=== PATIENT | female | born 1985 | race Caucasian/White ===

== ENCOUNTER → 2020-04-01 09:10 | Outpatient (CLI) | payer BC, SELFPAY ==
[2020-04-02 09:56] LABS: Varicella IgG Antibody 1543 index (Immune >165)
[2020-04-04 13:17] LABS: Gest Age on Col Date 16.6 weeks (.); Gestational Age Ultrasound (.); Insulin Dep Diabetes No (.); OSBR Risk 1IN 578 (.); Results Report (.); Test Results *Screen Negative* (.)
== END ==
PROVIDERS: Referring Provider Specialist; Visit Provider Specialist
DX: O30.049 Twin pregnancy, dichorionic/diamniotic, unspecified trimester (principal)
CPT/HCPCS: 36415; 82105; 86787

== ENCOUNTER → 2020-04-30 09:15 | Outpatient (CLI) | payer BC, SELFPAY ==
--- NOTE | 2020-04-30 09:17 | DI.US.S_ITS ---
PROCEDURE: US OB >= 14 WEEKS FETUS INDICATIONS: 20 week anatomy scan *TWINS* OUTSIDE/PRIOR DATING DATA: Last menstrual period (LMP): 12/07/11. LMP-based estimated date of delivery (AMBROSE): 09/12/20. First dating scan (date and location): 04/01/20. Estimated date of delivery (AMBROSE) from first dating scan: 09/08/20. TECHNIQUE: Real-time scanning was performed of the fetuses, with image documentation and biometric measurements. Endovaginal scanning: No COMPARISON: [facility], , OB >= 14 WEEKS FETUS, 04/01/2020, 8:51. FINDINGS: General: An intrauterine dichorionic-diamniotic twin is present, as evidenced by separate placentas, differing sexes, or an intervening membrane of greater than 2 mm. Amniotic fluid index (composite): 13.6 cm. Maternal cervical canal: 4.1 cm long. Normal lower limit is 2.5 cm. FETUS A: Fetus is located on the maternal left side, and is in vertex presentation. Placental position is anterior, without previa. heart rate: 136 beats per minute. biometrics: Biparietal diameter: 21 weeks 2 days Head circumference: 21 weeks 1 day Abdominal circumference: 21 weeks 6 days Femur length: 20 weeks 5 days Estimated gestational age from initial scan: 21 weeks 2 days Composite gestational age from present scan: 21 weeks 2 days Estimated weight and percentile: 412 g; 44th percentile Measurement variability for biometric dating: +/- 7 days from 14 weeks to 15 weeks 6 days gestation, +/- 10 days from 16 weeks to 21 weeks 6 days gestation, +/- 2 weeks from 22 weeks to 27 weeks 6 days gestation, +/- 3 weeks for 28 weeks gestation or later. weight reference: 4500 g or EFW >90/95% is considered macrosomia or large for gestational age. EFW <10% is small for gestational age. EFW 5% or less is considered intra-uterine growth restriction. Anatomic survey: Neuro: Ventricles are normal at less than 10 mm. Cisterna magna is normal at 3-11 mm. Cerebellum is normal in size and morphology. Nuchal skin fold: Normal at less than 6 mm between 14 and 21 weeks gestational age. Face: Nose and lips, facial profile are normal. Spine: No evidence for spina bifida. Heart: 4 chambered heart is present, with normal ventricular outflow tracts. Diaphragm: Diaphragm is intact. Stomach: Left-sided stomach is present. Kidneys: No hydronephrosis. Normal ranges are less than 5 mm in 2nd trimester, less than 7 mm in 3rd trimester. Cord: 3 vessel cord has orthotopic insertion. Bladder: Normal in size. Extremities: All 4 extremities are visualized. FETUS B: Fetus is located on the maternal right side, and is in transverse presentation. . Placental position is anterior, without previa. heart rate: 141 beats per minute. biometrics: Biparietal diameter: 21 weeks 1 day Head circumference: 21 weeks 3 days Abdominal circumference: 21 weeks 6 days Femur length: 20 weeks 4 days Estimated gestational age from initial scan: 21 weeks 2 days Composite gestational age from present scan: 21 weeks 2 days Estimated weight and percentile: 413 g; 45th percentile Measurement variability for biometric dating: +/- 7 days from 14 weeks to 15 weeks 6 days gestation, +/- 10 days from 16 weeks to 21 weeks 6 days gestation, +/- 2 weeks from 22 weeks to 27 weeks 6 days gestation, +/- 3 weeks for 28 weeks gestation or later. weight reference: 4500 g or EFW >90/95% is considered macrosomia or large for gestational age. EFW <10% is small for gestational age. EFW 5% or less is considered intra-uterine growth restriction. Anatomic survey: Neuro: Ventricles are normal at less than 10 mm. Cisterna magna is normal at 3-11 mm. Cerebellum is normal in size and morphology. Nuchal skin fold: Normal at less than 6 mm between 14 and 21 weeks gestational age. Face: Not well-visualized. Spine: No evidence for spina bifida. Heart: 4 chambered heart is present, with normal ventricular outflow tracts. Diaphragm: Diaphragm is intact. Stomach: Left-sided stomach is present. Kidneys: No hydronephrosis. Normal ranges are less than 5 mm in 2nd trimester, less than 7 mm in 3rd trimester. Cord: 3 vessel cord has orthotopic insertion. Bladder: Normal in size. Extremities: All 4 extremities are visualized. IMPRESSION: 1. Diamniotic dichorionic living twin gestation redemonstrated and interval growth is normal for each fetus as above. 2. Normal anatomic survey for fetus B. 3. face for fetus B. not well-visualized; otherwise normal anatomic survey. Followup recommended. Dictated by: Sanjiv Garcia [facility] Interpreted: Jessica Ellison MD on 04/30/2020 at 10:49 Approved by: Jessica Ellison MD, PhD on 04/30/2020 at 13:39
== END ==
PROVIDERS: Referring Provider Specialist; Visit Provider Specialist
DX: O30.042 Twin pregnancy, dichorionic/diamniotic, second trimester (principal); Z3A.21 21 weeks gestation of pregnancy
CPT/HCPCS: 76811; 76812

== ENCOUNTER → 2020-05-25 10:58 | Outpatient (CLI) | payer BC, SELFPAY ==
[2020-05-25 12:52] LABS: Hematocrit 34.7 % (36-46); Hemoglobin 11.9 g/dL (12.0-16.0)
[2020-05-25 13:07] LABS: GTT (PREG) 1 Hour PP 50gm Dose 107 mg/dL (76-139)
== END ==
PROVIDERS: PCP Family Medicine; Referring Provider Specialist; Visit Provider Specialist
DX: Z34.82 Encounter for supervision of other normal pregnancy, second trimester (principal); Z3A.26 26 weeks gestation of pregnancy
CPT/HCPCS: 36415; 82950; 85014; 85018

== ENCOUNTER 2020-06-09 10:17 | Observation (INO) | payer BC, SELFPAY ==
--- NOTE | 2020-06-09 | DI.US.S_ITS ---
PROCEDURE: US OB LIMITED INDICATIONS: CONTRACTIONS OUTSIDE/PRIOR DATING DATA: Last menstrual period (LMP): 12/07/2019. LMP-based estimated date of delivery (AMBROSE): 09/12/2020. First dating scan (date and location): 04/01/2020 at [facility]. Estimated date of delivery (AMBROSE) from first dating scan: 09/08/2020. TECHNIQUE: Real-time scanning was performed of the fetuses, with image documentation and biometric measurements. Endovaginal scanning: Yes COMPARISON: [facility], OB >= 14 WEEKS FETUS, 06/03/2020, 10:49. [facility], OB >= 14 WEEKS FETUS, 05/22/2020, 16:53. [facility] OB >= 14 WEEKS FETUS, 05/08/2020, 12:12. [facility] OB >= 14 WEEKS FETUS, 04/30/2020, 9:30. [facility] OB >= 14 WEEKS FETUS, 04/01/2020, 8:51. [facility], OB <= 14 WEEKS FETUS, 03/04/2020, 16:34. FINDINGS: General: An intrauterine dichorionic-diamniotic twin is present, as evidenced by separate placentas, differing sexes, or an intervening membrane of greater than 2 mm. Amniotic fluid index (composite): 15.9 cm. Maternal cervical canal: 3.3 cm long. Normal lower limit is 2.5 cm. FETUS A: Fetus is located on the maternal left side, and is in vertex presentation. Largest amniotic fluid pocket: 6.2 cm; normal range is 2-8 cm. Placental position is anterior, without previa. heart rate: 155 beats per minute. FETUS B: Fetus is located on the maternal right side, and is in transverse presentation. Largest amniotic fluid pocket: 3.9 cm; normal range is 2-8 cm. Placental position is anterior without previa. heart rate: 145 beats per minute. IMPRESSION: 1. Twin living intrauterine gestations are redemonstrated. 2. The cervix is closed measuring 3.3 cm. Dictated by: Lizeth Guerrero M.D. on 06/09/2020 at 15:23 Approved by: Lizeth Guerrero M.D. on 06/09/2020 at 15:36
[2020-06-09 11:35] LABS: Bacteria Urine None Seen; RBC Urine None Seen (0-5/HPF)
[2020-06-09 11:44] LABS: Culture Indicated Urine Cult Not Indicated; WBC Urine 0-1/HPF (0-5/HPF)
[2020-06-09] MEDS: NIFEdipine 10 MG CAPSULE PO ×4 (12:55→14:05)
--- NOTE | 2020-06-09 14:28 | P.TNLD_ITS ---
Visit Information Visit Information Date of evaluation: 06/09/20 Primary OB Provider: Ginette Gabriel On-call OB Provider: Miranda Davison Reason for Evaluation: Yes non-stress test Comments/Additional reasons for admission: This patient is a 34yo @26+3 with spontaneous di/di twins, presenting after calling triage with contractions since yesterday. She reports contractions as often as 2x an hour yesterday afternoon and evening, and a pelvic sensation that might be pressure. She denies vaginal bleeding, and reports increased discharge x1 week but no itching, odor, or UTI symptoms. She has had a previously uncomplicated , and has a history de la torre vaginal delivery after 40 weeks after an uncomplicated . [facility] Medical History Eczema of both upper extremities (Acute) HPV in female (Acute ~2011) (spontaneous vaginal delivery) (Acute ~08/25/18) Twin gestation in first trimester (Acute) UTI (urinary tract infection) (Acute) Surgical History H/O LEEP (Acute) H/O myringotomy (Acute) H/O wisdom tooth extraction (Acute) Hx of oral surgery (Acute) Family History Mother No problems noted. 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 estella/uatsdin: [employer] special estella needs: No Smoking Status: Former smoker (many years ago pre-college) Tobacco: How many years used: 1 second hand exposure: No alcohol intake: former (pre- : rare-social) substance use type: does not use Review of Systems Constitutional Constitutional: Reports system reviewed and no additional complaints, except as documented Cardiovascular Cardiovascular: Reports system reviewed and no additional complaints, except as documented Respiratory Respiratory: Reports system reviewed and no additional complaints, except as documented Gastrointestinal Gastrointestinal: Reports as per HPI Genitourinary Genitourinary: Reports as per HPI Exam Const General: cooperative, healthy appearing and comfortable GI Palpation: soft and No tender External Female Exam: other (mucosa/labia mildly erythematous) Other: cervix posterior and high, closed/long though multiparous. Ultrasound reviewed, 3.3cm cervical length. Objective Labs Labs: Laboratory Results - last 24 hr 06/09/20 10:30 Urine RBC None seen Urine WBC 0-1/hpf Urine Bacteria None seen Ur Culture Indicated? Cult not indicated Evaluation Evaluation Cervical dilation (cm): 0 Cervical effacement (%): 0 station: -4 Laboratory results: Laboratory Tests 06/09/20 10:30 Urine RBC None seen Urine WBC 0-1/hpf Urine Bacteria None seen Ur Culture Indicated? Cult not indicated Comments: TVUS reviewed. Reassuring status, cervix measures 3.3cm. No FFN sent. Baby A: baseline 145, moderate variability, + 10x10 accels, no decels Baby B: baseline 150, moderate variability, 10x10 accels, no decels Diagnosis, Plan/Disposition Plan/Disposition Plan: Patient with long and closed cervix, largely asymptomatic contractions that resolved with course of PO nifedipine and PO hydration. UA negative for UTI, Affirm collected as vaginal mucus concerning for vaginitis. Patient discharged home with precautions. Patient to move OB visit up to tomorrow for further evaluation, consideration of FFN and repeat cervical length depending on symptoms. OB Disposition: home
[2020-06-10 08:13] LABS: Candida species Negative (Negative); Gardnerella vaginalis Negative (Negative); Trichomoas vaginalis Negative (Negative)
== END 2020-06-09 14:40 | disposition home or self-care (01) ==
PROVIDERS: Obstetrics & Gynecology; Admitting Provider Specialist; PCP Family Medicine; Referring Provider Specialist; Visit Provider Specialist
DX: O30.042 Twin pregnancy, dichorionic/diamniotic, second trimester (principal); O47.02 False labor before 37 completed weeks of gestation, second trimester; N89.8 Other specified noninflammatory disorders of vagina; Z3A.26 26 weeks gestation of pregnancy
CPT/HCPCS: 59025; 59050; 76815; 81015; 87480; 87510; 87660; G0378; G0379

== ENCOUNTER → 2020-06-10 13:50 | Outpatient (CLI) | payer BC, SELFPAY ==
[2020-06-10 14:32] LABS: Fetal Fibronectin Negative
== END ==
PROVIDERS: PCP Family Medicine; Visit Provider Specialist
DX: O60.02 Preterm labor without delivery, second trimester (principal)
CPT/HCPCS: 82731

== ENCOUNTER 2020-07-07 10:18 | Outpatient (CLI) | payer BC, SELFPAY | END 2020-07-07 10:45 | disposition home or self-care (01) | LOC: OB 07-09 10:27 | PROVIDERS: PCP Family Medicine | DX: O30.003 Twin pregnancy, unspecified number of placenta and unspecified number of amniotic sacs, third trimester (principal); Z3A.30 30 weeks gestation of pregnancy | CPT/HCPCS: 59025; G0378; G0379 ==

== ENCOUNTER 2020-07-29 13:52 | Outpatient (CLI) | payer BC, SELFPAY ==
--- NOTE | 2020-07-29 15:12 | PM.OBTRLD ---
Visit Information Visit Information Date of evaluation: 07/29/20 Primary OB Provider: Ginette Gabriel Reason for Evaluation: Yes pre-term labor [facility] Medical History (Updated 07/29/20 @ 15:13 by Ginette Gabriel MD) 33 weeks gestation of (Acute) Eczema of both upper extremities (Acute) False labor (Acute) HPV in female (Acute ~2011) (spontaneous vaginal delivery) (Acute ~08/25/18) UTI (urinary tract infection) (Acute) Surgical History H/O LEEP (Acute) H/O myringotomy (Acute) H/O wisdom tooth extraction (Acute) Hx of oral surgery (Acute) Family History Mother No problems noted. 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: [employer]astafarian special estella needs: No Smoking Status: Former smoker (many years ago pre-college) Tobacco: How many years used: 1 second hand exposure: No alcohol intake: former (pre- : rare-social) substance use type: does not use Evaluation Evaluation Baseline heart rate: 150 (Both) Variability: Moderate (11-25) (Both) monitor accelerations: Present (Both) monitor decelerations: Absent (Both) Contraction Frequency (minutes): 10 Uterine Contraction Intensity: Mild Category of Tracing: Reactive Cervical dilation (cm): 0 Cervical effacement (%): 0 station: -3 Diagnosis, Plan/Disposition Final Diagnosis (1) False labor: Status: Acute (2) 33 weeks gestation of : Status: Acute Plan/Disposition Plan: No evidence of change in cervix with uterine irritability. Precautions reviewed OB Disposition: home
== END 2020-07-29 15:30 | disposition home or self-care (01) ==
LOC: LABOR 14:23 → OB 08-13 10:48
PROVIDERS: PCP Family Medicine; Referring Provider Specialist; Visit Provider Specialist
DX: O47.03 False labor before 37 completed weeks of gestation, third trimester (principal); O30.003 Twin pregnancy, unspecified number of placenta and unspecified number of amniotic sacs, third trimester; Z3A.33 33 weeks gestation of pregnancy
CPT/HCPCS: 59025; G0378; G0379

== ENCOUNTER → 2020-08-07 15:35 | Outpatient (CLI) | payer BC, SELFPAY ==
[2020-08-08 15:08] LABS: Strep Grp B PCR NEG for Grp B Strep
== END ==
PROVIDERS: PCP Family Medicine; Visit Provider Specialist
DX: Z34.83 Encounter for supervision of other normal pregnancy, third trimester (principal); Z3A.34 34 weeks gestation of pregnancy
CPT/HCPCS: 87653

== ENCOUNTER → 2020-08-25 10:15 | Outpatient (CLI) | payer BC, SELFPAY ==
[2020-08-26 00:49] LABS: COVID19 Sendout Not Detected (Not Detect)
== END ==
PROVIDERS: PCP Family Medicine; Visit Provider Physician Assistant
DX: Z01.812 Encounter for preprocedural laboratory examination (principal)
CPT/HCPCS: 87635

== ENCOUNTER 2020-08-28 05:51 | Inpatient (IN) | payer BC, SELFPAY ==
--- NOTE | 2020-08-28 07:21 | PM.PREOP ---
Pre-operative Note COVID-19 COVID-19 status: Negative Result date/Date tested (Pos, Neg/Pending): 08/25/20 Interval Note History & Physical reviewed/Exam performed by Physician: Yes Changes to H&P: No
[2020-08-28 07:26] VITALS: BP 128/72
[2020-08-28 07:52] LABS: Add Manual Diff / Slide Review NO; Basophils Absolute Auto 0 /uL (0-100); Basophils Percent Auto 0.2 % (0-2); Eosinophils Absolute Auto 200 /uL (0-450); Eosinophils Percent Auto 2.7 % (2-4); Hematocrit 34.6 % (36-46); Hemoglobin 11.5 g/dL (12.0-16.0); Lymphocytes Absolute Auto 1900 /uL (1100-4500); Lymphocytes Percent Auto 26.1 % (25-40); Mean Corpuscular HGB Conc 33.4 % (30-36); Mean Corpuscular Hemoglobin 29.2 PG (26-34); Mean Corpuscular Volume 87.4 fL (80-100); Monocytes Absolute Auto 700 /uL (0-900); Neutrophils Absolute Auto 4600 /uL (1500-7000); Platelet Count 171 X10^3/uL (150-400); Red Blood Cell Count 3.95 X10^6/uL (4.0-5.2); White Blood Cell Count 7.4 X10^3/uL (4.5-11.0)
[2020-08-28] MEDS: CEFAZOLIN 2 GM/100 ML FROZ.PIGGY IV (08:05)
--- NOTE | 2020-08-28 08:37 | SUR.OPER ---
Supine on Padded OR bed, head on pillow, safety belt at thigh, arms secured on padded arm boards at <90 degrees abduction. Bump under right buttock. Legs uncrossed with pillow under knees, gel pad to heels, tape over blanket to lower legs.
[2020-08-28] MEDS: ACETAMINOPHEN IV 1,000 MG/100 ML VIAL 400 MG IV (08:42)
--- NOTE | 2020-08-28 08:42 | SUR.OPER ---
BABY A FHT 138, BABY B FHT 146 BABY A LIVE FEMALE BORN AT 0826 BABY B LIVE MALE BORN AT 0827
[2020-08-28 09:05] VITALS: BP 121/51; PULSE 71; RESP 12; TEMP 36.2; O2SAT 100
[2020-08-28 09:10] VITALS: BP 132/58; PULSE 70; RESP 9; O2SAT 100
[2020-08-28] MEDS: MEPERIDINE 50 MG/ML INJ 12.5 MG IV (09:13)
[2020-08-28 09:15] VITALS: BP 117/59; PULSE 77; RESP 16; O2SAT 100
--- NOTE | 2020-08-28 09:18 | PM.OP.1 ---
Operative Date/Time/Diagnoses Date of procedure: 08/28/20 Time of procedure: 09:18 Pre-op diagnosis: Twin gestation at 38 weeks in non vertex position Post-op diagnosis: same Procedure & Clinicians Procedure: Primary low-transverse section Same procedure as scheduled: Yes Indications: Twin gestation at 38 weeks with non vertex presentation Surgeon: Ginette Gabriel [place] Worker: Elysia Morales Click Yes if Unassisted: No Anesthesia Type: Spinal Operative Notes Findings: Normal tubes, ovaries, uterus. Viable female weighing 5 lb 14 oz with Apgars of 9 and 9 viable male infant weighing 5 lb 11 oz with Apgars of 9 in 10 Closure Type: primary Specimen(s): none sent Applied: catheter (Yanez) Estimated Blood Loss (mL): 400 Blood products transfused: none Procedure in detail: The patient was brought to the operating room where she underwent a spinal for anesthesia. She was placed in a supine position with a left lateral tilt. A Yanez catheter was placed. Pulsatile stockings were placed and functional throughout the case. 2 g of Ancef were given IV prior to the incision. Warming was in place. The patient was prepped and draped in usual sterile fashion. A low transverse incision was made with a scalpel and the incision was carried down to the fascial layer which was incised transversely with scissors. The midline attachments are superiorly and inferiorly. The rectus muscles were in the midline and the peritoneal incision was made with no damage to internal structures. The peritoneum was incised and superiorly and inferiorly. Bladder blade was placed and a bladder flap was developed and the bladder held away from the lower uterine segment. An incision was made in the uterus with the scalpel and the incision was extended with stretching. The 1st amniotic fluid cavity was entered and the feet grasped. The infant was delivered to the shoulders and the arms delivered. The head delivered with finger in the 's mouth. Delayed cord clamping was performed for about 45 seconds. The was handed off to the warmer. The 2nd amniotic fluid cavity was entered. Feet grasped and the infant delivered to the shoulders. The arms were delivered followed by the head. Delayed cord clamping about 45 seconds. The was handed off to the warmer. Cord bloods were collected. The placenta was delivered. The uterus was cleaned with clean laps. The uterine incision was closed in 2 layers of 0 chromic suture the first a running locking layer the second an imbricating layer. The bladder peritoneum was repaired with 2-0 Vicryl suture. The gutters were cleaned of any remaining fluids and ovaries and tubes were observed to be normal. Adequate hemostasis was noted. The perineum was closed with 2-0 Vicryl suture. The fascia layer was closed with 0 Vicryl suture with 2 stitches. The incision was irrigated and adequate hemostasis noted. The skin was closed with a subcuticular stitch of 4-0 Vicryl suture. Steri-Strips were placed. An Aquacel dressing was placed. The uterus was massaged to remove any clots. The patient went to recovery room in good condition. Counts of instruments and sponges were correct. Complications: none Post-operative Condition: stable Disposition: other ( Center) Plan for aftercare: Routine post section
[2020-08-28 09:30] VITALS: BP 139/56; PULSE 66; RESP 18; O2SAT 100
[2020-08-28] MEDS: diphenhydrAMINE 50 MG/ML VIAL 12.5 MG IV (09:30)
--- NOTE | 2020-08-28 10:26 | SUR.PHASEI ---
Late entry: Pt had shakes post op, demerol given, pt had a reaction to l inner arm, red lines along blood vessels and one raised dime sized area to lower inner arm. Dr Lopez made aware, Rivera ordered and administered.
--- NOTE | 2020-08-28 10:32 | SUR.PHASEI ---
As pt being transported to room in , l arm welt much improved and red lines gone as well.
[2020-08-28] MEDS: KETOROLAC 30 MG/ML VIAL IV ×2 (15:01→21:07)
[2020-08-28 21:07] VITALS: TEMP 36.8
[2020-08-28] MEDS: LACTATED RINGERS 1,000 ML 100 ML IV (21:38)
[2020-08-29] MEDS: KETOROLAC 30 MG/ML VIAL IV (03:05)
[2020-08-29 05:45] LABS: Add Manual Diff / Slide Review NO; Basophils Absolute Auto 0 /uL (0-100); Basophils Percent Auto 0.2 % (0-2); Eosinophils Absolute Auto 200 /uL (0-450); Eosinophils Percent Auto 2.2 % (2-4); Hematocrit 29.4 % (36-46); Hemoglobin 9.7 g/dL (12.0-16.0); Lymphocytes Absolute Auto 2000 /uL (1100-4500); Lymphocytes Percent Auto 23.2 % (25-40); Mean Corpuscular Hemoglobin 29.1 PG (26-34); Mean Corpuscular Volume 88.1 fL (80-100); Monocytes Absolute Auto 900 /uL (0-900); Neutrophils Absolute Auto 5400 /uL (1500-7000); Neutrophils Percent Auto 63.4 % (50-75); Platelet Count 137 X10^3/uL (150-400); Red Blood Cell Count 3.34 X10^6/uL (4.0-5.2); Red Cell Distribution Width 16.3 % (11.6-14.8); White Blood Cell Count 8.4 X10^3/uL (4.5-11.0)
[2020-08-29] MEDS: DOCUSATE 250 MG CAPSULE PO (07:56)
[2020-08-29] MEDS: ACETAMINOPHEN 325 MG TABLET 650 MG PO (08:30)
--- NOTE | 2020-08-29 08:59 | P.PNOB_ITS ---
Subjective - OB Subjective Patient comments: no complaints, pain well controlled and tolerating diet baby status: doing well feeding status: exclusively breast feeding Narrative: Patient is POD#1 s/p scheduled pCS for twins, recovering appropraitely. 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 Date Patient Seen: 08/29/20 Time Patient Seen: 09:37 Interval history: This patient reports feeling well this AM, is ambulating, voiding, mild lochia, tolerating PO, has good pain control. Has not passed flatus but feels the urge to pass gas. Exam Vital Signs (past 8 hours): 109/66, HR 73, T 36.3C Oxygen Delivery Method Room Air Const General: cooperative, healthy appearing and comfortable Resp Effort & Inspection: normal respiratory effort Auscultation: clear to auscultation bilaterally Cardio Rate: regular rate Rhythm: regular rhythm GI Inspection: incision (c/d/i, covered by bandage) Palpation: soft and No tender Other: fundus firm, well below u Skin General: no rashes or lesions noted Extrem General: normal to inspection Objective Labs Result Diagrams: 08/29/20 05:06 Labs: Laboratory Results - last 24 hr 08/29/20 05:06 WBC 8.4 RBC 3.34 L Hgb 9.7 L Hct 29.4 L MCV 88.1 MCH 29.1 MCHC 33.0 RDW 16.3 H Plt Count 137 L Neut % (Auto) 63.4 Lymph % (Auto) 23.2 L [place] % (Auto) 11.0 Eos % (Auto) 2.2 Baso % (Auto) 0.2 Neut # (Auto) 5400 Lymph # (Auto) 2000 [place] # (Auto) 900 Eos # (Auto) 200 Baso # (Auto) 0 Assessment & Plan Assessment and Plan (1) Twin delivery by : Status: Acute Plan day: 1 plan OB: routine postop care and discharge home Comments: This patient is recovering appropriately, meeting postop goals and highly motivated for discharge this afternoon. Postop and precautions and instructions were discussed, and the patient vocalized understanding of the risks and benefits of discharge today. Patient will follow up in clinic in 1-2 w eeks for incision check. Time Spent With Patient Time: Total time spent is greater than 50% in coordination of care (as documen rhiannon) at patient's floor/unit and/or counseling patient: Time with patient: 15-24 minutes
[2020-08-29] MEDS: IBUPROFEN 600 MG TABLET PO (09:40)
--- NOTE | 2020-08-29 09:45 | P.DS_ITS ---
Discharge Providers Provider Date of admission: 08/28/20 05:51 Discharge Date: 08/29/20 Primary care physician: Orquidea Fulton MD Consults: 08/28/20 10:51 Consult to [facility] Director Routine Comment: Discharge provider: Miranda Davison MD Summary Hospital Course Date Patient Seen: 08/29/20 Time Patient Seen: 09:46 Procedures: primary section for twin delivery Hospital Course: This patient was admitted for scheduled section for twins, and underwent an uncomplicated section. Her recovery was uncomplicated, and she strongly desired discharge on POD#1 and was discharged home with precautions after discussion of risks and benefits. Peripartum Data Delivery Method: Section 1: Gender: Female Disposition of : home 2: Gender: Male Disposition of : home Discharge Diagnosis (1) Twin delivery by : Status: Acute Status at Discharge Cognitive/behavioral status at discharge: oriented Functional status at discharge: independent ambulation Overall status at discharge: patient is progressing back to baseline Time Spent with Patient Time attestation: Total time spent providing and/or coordinating discharge services: Time spent: Greater than 30 minutes Objective Labs Result Diagrams: 08/29/20 05:06 Labs: Laboratory Results - last 24 hr 08/29/20 05:06 WBC 8.4 RBC 3.34 L Hgb 9.7 L Hct 29.4 L MCV 88.1 MCH 29.1 MCHC 33.0 RDW 16.3 H Plt Count 137 L Neut % (Auto) 63.4 Lymph % (Auto) 23.2 L Bibb % (Auto) 11.0 Eos % (Auto) 2.2 Baso % (Auto) 0.2 Neut # (Auto) 5400 Lymph # (Auto) 2000 Bibb # (Auto) 900 Eos # (Auto) 200 Baso # (Auto) 0 Exam Vital Signs (past 8 hours): See day of discharge progress note. Oxygen Delivery Method Room Air Discharge Plan Discharge Plan Patient Disposition: Home Discharge orders & Medications Prescriptions: New oxycodone 5 mg tablet 5 mg PO Q8H PRN (Reason: pain) Qty: 14 RF: 0 Continued prenat.vits,jamar,[id number] Tablet 1 tab PO DAILY RF: 0 Discontinued folic acid 400 mcg tablet 0.4 mg PO DAILY RF: 0 No Action (DME) Double Electric breast Pump and Supplies See Rx Instructions .ROUTE .MEDSUPPLY Qty: 1 RF: 0 Follow up/Referrals: Orquidea Fulton MD [Primary Care Provider] - Ginette Gabriel MD [Physician] - 2 Weeks (incision check within 1-2 weeks) Diet/Activity/Treatments Diet: Regular Activity: Nothing in the vagina for 6 weeks. Avoid lifting more than 10 lbs for 6 weeks. If you have increasing bleeding, fevers, chills, nausea, vomiting, headaches, visual changes, chest pain, difficulty voiding, or any other complaints, call the office or come to the emergency room. Skin/Wound/Dressing Care Report to your healthcare provider any signs of infection, such as:: chills, fever, night sweats, increased pain, unusual drainage and unusual redness Visit Report/Discharge Packet Instructions: DI for Discharge Data Primary Care Provider: Orquidea Fulton
[2020-08-29 10:54] VITALS: TEMP 36.9
[2020-08-29 12:50] VITALS: BP 122/68; PULSE 68; RESP 17; TEMP 37
== END 2020-08-29 13:35 | disposition home or self-care (01) | DRG 788 ==
PROVIDERS: Admitting Provider Specialist; PCP Family Medicine; Referring Provider Specialist; Visit Provider Specialist
PROC: 10D00Z1 Extraction of Products of Conception, Low, Open Approach (ICD-10-PCS; CPT 59514; principal; 2020-08-28 07:45)
DX: O32.2XX0 Maternal care for transverse and oblique lie, not applicable or unspecified (principal); Z3A.38 38 weeks gestation of pregnancy; O30.043 Twin pregnancy, dichorionic/diamniotic, third trimester; Z37.2 Twins, both liveborn; Z01.812 Encounter for preprocedural laboratory examination; Z11.59 Encounter for screening for other viral diseases
CPT/HCPCS: 36415; 59050; 59510; 59514; 85025; 86850; 86900; 86901; 87635; J0131; J0690; J1200; J1885; J2175; J2274; J2590